=== PATIENT | male | born 1995 | race Caucasian/White ===

== ENCOUNTER 2016-10-24 07:42 | Emergency (ER) | payer SELFPAY ==
[2016-10-24 07:43] VITALS: BP 134/73; PULSE 94; RESP 20; TEMP 98.6; O2SAT 99
--- NOTE | 2016-10-24 07:57 | PD ---
HPI Chief Complaint: Skin Problem Time Seen by Provider: 07:56 Travel History International Travel<30 days: No Contact w/Intl Traveler<30days: No Traveled to known affect area: No History of Present Illness HPI 21-year-old male presents emergency Department with a tender swollen erythematous area to the left posterior lateral proximal forearm. 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 Patient states last evening he drainage of large amount of pus from the area. Today he states the area is again swollen and more painful. Current pain is 8 out of 10. He denies fever, chills, streaking. Or current drainage. Patient states he had a similar lesion on his leg several years ago. He has no specific history of MRSA in the past. He is up-to-date on his tetanus. He is unsure how the lesion started. He has no known drug allergies PFSH Social History Alcohol Use: Yes Tobacco Use: Yes Substance Use: No Allergies-Medications (Allergen,Severity, Reaction): Coded Allergies: No Known Allergies (Unverified , 10/24/16) Reported Meds & Prescriptions Reported Meds & Active Scripts Active Ibuprofen 800 Mg Tab 800 Mg PO Q8H PRN Cephalexin 500 Mg Cap 500 Mg PO Q8H Bactroban Topical (Mupirocin) 22 Gm Cream 1 Applic TOPICAL BID Bactrim DS (Sulfamethoxazole-Trimethoprim) 800-160 Mg Tab 1 Tab PO BID Review of Systems Except as stated in HPI: all other systems reviewed are Neg General / Constitutional: No: Fever, Chills Eyes: No: Visual changes HENT: No: Headaches Cardiovascular: No: Chest Pain or Discomfort Respiratory: No: Shortness of Breath Gastrointestinal: No: Abdominal Pain Genitourinary: No: Dysuria Musculoskeletal: No: Pain Skin: Positive Lesions (see history of present illness), No Rash Neurologic: No: Weakness Psychiatric: No: Depression Endocrine: No: Polydipsia Hematologic/Lymphatic: No: Easy Bruising Physical Exam Narrative GENERAL: Patient appears in mild distress. SKIN: Warm and dry. Normal color. Normal turgor. Patient has a scabbed area to the left proximal posterior lateral forearm with localized induration and a small amount of erythema. I cannot palpate a specific abscess at this time. The area of induration is approximately 4 cm in diameter. It does not involve the elbow. HEAD: Atraumatic. Normocephalic. EYES: Pupils equal and round. No scleral icterus. No injection or drainage. ENT: No nasal bleeding or discharge. Mucous membranes pink and moist. NECK: Trachea midline. Supple and nontender. CARDIOVASCULAR: Regular rate and rhythm. RESPIRATORY: No accessory muscle use. Clear to auscultation. Breath sounds equal bilaterally. MUSCULOSKELETAL: Extremities without clubbing, cyanosis, or edema. No obvious deformities. Range of motion and neurovascular exam is normal in the left forearm and hand. Elbow has full strength and range of motion of the left. NEUROLOGICAL: Awake and alert. No obvious cranial nerve deficits. Motor grossly within normal limits. Five out of 5 muscle strength in the arms and legs. Normal speech. PSYCHIATRIC: Appropriate mood and affect; insight and judgment normal. Data Data Last Documented VS Vital Signs Date Time Temp Pulse Resp B/P Pulse Ox O2 Delivery O2 Flow Rate FiO2 10/24/16 07:43 98.6 94 20 134/73 99 Room Air Orders Sulfamet-Trimeth Ds 800-160 Mg (Bactrim (10/24/16 08:15) Cephalexin (Keflex) (10/24/16 08:15) Ibuprofen (Motrin) (10/24/16 08:15) Wound Culture And Gram Stain (10/24/16 08:12) MDM Medical Decision Making Medical Screen Exam Complete: Yes Emergency Medical Condition: Yes Differential Diagnosis Cellulitis. Early abscess. MRSA. Narrative Course Patient is medically stable at time of exam. Cultures taken from the wound. I do not feel the patient has a drainable abscess at this time. He'll be treated for cellulitis with Bactrim DS twice a day 7 days. Patient is also given Keflex 500 mg 3 times a day 7 days. He is given ibuprofen 800 mg 3 times a day #30. Leonardo bandage is placed over the area as well as a nonstick dressing. Patient is encouraged to use warm compresses to the area frequently through the day. Work note is given. Patient follow-up in the next couple of days as discussed as needed. Diagnosis Primary Impression: Left arm cellulitis Referrals: [facility] Patient Instructions: General Instructions Departure Forms: Work Release Enter return to work date: Oct 26, 2016 Additional Instructions: I do not feel the patient has a drainable abscess at this time. He'll be treated for cellulitis with Bactrim DS twice a day 7 days. Patient is also given Keflex 500 mg 3 times a day 7 days. He is given ibuprofen 800 mg 3 times a day #30. Leonardo bandage is placed over the area as well as a nonstick dressing. Patient is encouraged to use warm compresses to the area frequently through the day. Work note is given. Patient follow-up in the next couple of days as discussed as needed. Med/Other Pt SpecificInfo: Prescription(s) given Scripts Ibuprofen 800 Mg [id number] Mg PO Q8H PRN (Pain/Inflammation) #30 TAB Prov:Agustin Rolon MD 10/24/16 Cephalexin 500 Mg [id number] Mg PO Q8H #21 CAP Prov:Agustin Rolon MD 10/24/16 Mupirocin Topical (Bactroban Topical)22 Gm Cream1 Applic TOPICAL BID #1 TUBE Prov:Agustin Rolon MD 10/24/16 Sulfamethoxazole-Trimethoprim (Bactrim DS)800-160 Mg Tab1 Tab PO BID #14 TAB Prov:Agustin Rolon MD 10/24/16 Disposition: 01 DISCHARGE HOME Condition: Stable Dave Cantu Oct 24, 2016 07:57
[2016-10-24] MEDS ORDERED: CEPH500C PO (08:14)
[2016-10-24] MEDS ORDERED: BACT800T5 PO (08:14)
[2016-10-24] MEDS ORDERED: MUPI2%T TOPICAL (08:14)
[2016-10-24] MEDS ORDERED: IBUP800T23 PO (08:14)
[2016-10-24] MEDS ORDERED: SULFAMETHOXAZOLE-TRIMETHOPRIM DS 800-160 MG TAB PO ONE (08:15)
[2016-10-24] MEDS ORDERED: CEPHALEXIN MONOHYDRATE 500 MG CAP PO ONE (08:15)
[2016-10-24] MEDS ORDERED: IBUPROFEN 800 MG TAB PO ONE (08:15)
== END 2016-10-24 08:39 | disposition home or self-care (01) ==
LOC: NEPK 07:42
DX: L03.114 Cellulitis of left upper limb (principal); Z72.0 Tobacco use; Z79.899 Other long term (current) drug therapy
CPT/HCPCS: 86403; 87070; 99284

== ENCOUNTER 2016-10-28 13:14 | Emergency (ER) | payer SELFPAY ==
[~2016-10-28] VITALS: Ht 175.3 cm; Wt 75.0 kg
[~2016-10-28 13:14] MED LIST: BACT800T5 PO; CEPH500C PO; IBUP800T23 PO; MUPI2%T TOPICAL
[2016-10-28 13:16] VITALS: BP 124/68; PULSE 94; RESP 20; TEMP 98.3; O2SAT 98
[2016-10-28] MEDS ORDERED: TRAM50TA PO (13:33)
[2016-10-28] MEDS ORDERED: LIDOCAINE HCL 1% 50 ML VIAL ONE (14:32)
[2016-10-28] MEDS ORDERED: LIDOCAINE HCL 1% 50 ML VIAL INFIL ONE (14:45)
[2016-10-28] MEDS ORDERED: ACETAMINOPHEN/HYDROcodone 325 MG/5 MG TAB PO ONE (15:00)
--- NOTE | 2016-10-28 15:18 | PD ---
HPI Chief Complaint: Lump, Cyst, Hernia Time Seen by Provider: 13:42 Travel History International Travel<30 days: No Contact w/Intl Traveler<30days: No Traveled to known affect area: No History of Present Illness HPI Patient is a 21-year-old male who comes in complaining of an abscess to his left arm. He was seen here a few days ago with cellulitis of the left arm, was discharged with prescriptions for Bactrim and Keflex. He says he has been taking these medications, and the redness has improved but now he has an area of swelling, but he believes needs to be drained. He says he has felt warm, but has not taken his temperature. He has no medical problems. He denies IV drug abuse. PFSH Past Medical History Tetanus Vaccination: < 5 Years Influenza Vaccination: No Social History Alcohol Use: No Tobacco Use: Yes Substance Use: No Allergies-Medications (Allergen,Severity, Reaction): Coded Allergies: No Known Allergies (Unverified , 10/28/16) Reported Meds & Prescriptions Reported Meds & Active Scripts Active Ibuprofen 800 Mg Tab 800 Mg PO Q8H PRN Cephalexin 500 Mg Cap 500 Mg PO Q8H Bactrim DS (Sulfamethoxazole-Trimethoprim) 800-160 Mg Tab 1 Tab PO BID Reported Tramadol (Tramadol HCl) 50 Mg Tab 50 Mg PO Q6H PRN Review of Systems Except as stated in HPI: all other systems reviewed are Neg General / Constitutional: No: Chills HENT: No: Headaches, Lightheadedness Cardiovascular: No: Chest Pain or Discomfort Respiratory: No: Shortness of Breath Gastrointestinal: No: Nausea, Vomiting Musculoskeletal: Positive: Pain Skin: Positive Lesions Neurologic: No: Weakness, Dizziness Physical Exam Narrative GENERAL: Awake and alert, in no acute distress. SKIN: Focused skin assessment warm/dry. 3 cm area of fluctuance just distal to the left elbow with surrounding erythema. HEAD: Atraumatic. Normocephalic. EYES: Pupils equal and round. No scleral icterus. No injection or drainage. ENT: No nasal bleeding or discharge. Mucous membranes pink and moist. NECK: Trachea midline. No JVD. CARDIOVASCULAR: Regular rate and rhythm. No murmur appreciated. RESPIRATORY: No accessory muscle use. Clear to auscultation. Breath sounds equal bilaterally. MUSCULOSKELETAL: No obvious deformities. No clubbing. No cyanosis. No edema. No joint erythema or warmth, no pain with flexion or extension of his elbow. NEUROLOGICAL: Awake and alert. No obvious cranial nerve deficits. Motor grossly within normal limits. Normal speech. PSYCHIATRIC: Appropriate mood and affect; insight and judgment normal. Data Data Last Documented VS Vital Signs Date Time Temp Pulse Resp B/P Pulse Ox O2 Delivery O2 Flow Rate FiO2 10/28/16 13:16 98.3 94 20 124/68 98 Room Air Orders Lidocaine 1% Inj (50 Ml) (Xylocaine 1% I (10/28/16 14:32) Lidocaine 1% Inj (50 Ml) (Xylocaine 1% I (10/28/16 14:45) Acetamin-Hydrocod 325-5 Mg ([place] 5-325 (10/28/16 15:00) MDM Medical Decision Making Medical Screen Exam Complete: Yes Emergency Medical Condition: Yes Medical Record Reviewed: Yes Differential Diagnosis Abscess versus cellulitis versus insect bite Narrative Course Patient is a 21-year-old male comes in with an abscess to his left arm. Exam shows a 3 cm area of fluctuance. This was incised and drained with a large amount of pus expressed. Patient advised to continue and complete his course of antibiotics. Advised to return to the emergency department as needed for any worsening symptoms. Procedures Procedure Narrative INCISION AND DRAINAGE OF ABSCESS: The area was prepped and was sterilely draped. A subcutaneous wheal of 1 % Xylocaine with a total number 5 mL was used to anesthetize the area properly. A number 11 scalpel was used to make a 1 -cm incision across the area of the abscess. The abscess was drained, complex loculations were broken down, and irrigated with normal saline. Sterile dressing applied. Diagnosis Primary Impression: Abscess Patient Instructions: Abscess (ED), General Instructions Departure Forms: Tests/Procedures Additional Instructions: Continue your antibiotics until he had finished them. Keep her wound clean and dry. Take ibuprofen as needed for pain. Return to the emergency department as needed for any worsening symptoms. Disposition: 01 DISCHARGE HOME Condition: Stable Ayaka Mario MD Oct 28, 2016 15:18
== END 2016-10-28 15:15 | disposition home or self-care (01) ==
LOC: NEPD 13:14
DX: L02.414 Cutaneous abscess of left upper limb (principal); Z79.899 Other long term (current) drug therapy; Z72.0 Tobacco use
CPT/HCPCS: 10060